=== PATIENT | female | born 1950 | race Caucasian/White ===

== ENCOUNTER → 2018-11-10 | Outpatient (CLI) | payer MEDICARE ==
[~2018-11-10] MED LIST: CA C1TAB67 PO; DELSYM; ESCI5TAB7 PO; LISI-170 PO; OMEP-110 PO; RANI150T23 PO; SIMV20TA3 PO; TYLENOL PO
== END | disposition home or self-care (01) ==
LOC: CFH 09:35
PROVIDERS: ATTEND Family Medicine
DX: Z12.31 Encounter for screening mammogram for malignant neoplasm of breast (principal)
CPT/HCPCS: 77063; 77067

== ENCOUNTER 2019-11-12 10:48 | Outpatient (CLI) | payer MEDICARE ==
[~2019-11-12 10:48] MED LIST changes: +RANI-467 PO; -RANI150T23 PO
== END 2019-11-12 23:59 | disposition home or self-care (01) ==
LOC: CFH 10:48
PROVIDERS: ATTEND Family Medicine
DX: Z12.31 Encounter for screening mammogram for malignant neoplasm of breast (principal)
CPT/HCPCS: 77067